=== PATIENT | male | born 1980 | race Caucasian/White ===

== ENCOUNTER 2024-02-25 15:44 | Emergency (ER) | payer OTHER, SELFPAY ==
[2024-02-25 15:53] VITALS: BP 147/82
[2024-02-25 16:12] LABS: % Basophils 0.6 % (0-2); % Immature Granulocytes 0.2 % (0-0.5); % Monocytes 7.6 % (1.7-9.3); % Neutrophils 58.6 % (42.2-75.2); Absolute Eosinophils 0.1 10^3/uL (0-0.7); Absolute Lymphocytes 1.6 10^3/uL (1.2-3.4); Absolute Monocytes 0.4 10^3/uL (0.1-0.6); Hematocrit 41.2 % (39.0-52.0); Hemoglobin 14.3 g/dL (13.0-18.0); Mean Corp Hgb Conc. 34.7 g/dL (33.0-37.0); Mean Corpuscular Hgb 30.6 pg (27.0-31.0); Mean Corpuscular Volume 88.2 fL (80.0-94.0); Mean Platelet Volume 9.2 fL (7.4-10.4); Nucleated Red Blood Cells % 0 % (-); Platelet Count 227 10^3/uL (130-400); Red Blood Cell Count 4.67 10^6/uL (4.70-6.10); Red Cell Dist. Width 12.5 % (11.5-14.5); White Blood Cell Count 5.1 10^3/uL (4.8-10.8)
[2024-02-25 16:27] LABS: ALT (SGPT) 20 U/L (0-50); AST (SGOT) 31 U/L (17-59); Albumin 4.7 g/dl (3.5-5.0); Alkaline Phosphatase 56 U/L (38-126); Blood Urea Nitrogen 15 mg/dl (9-20); Calcium 9.2 mg/dl (8.4-10.2); Carbon Dioxide 26 mmol/L (22-30); Chloride 103 mmol/L (98-107); Glucose 170 mg/dl (70-99); Potassium 4.1 mmol/L (3.5-5.1); Sodium 137 mmol/L (135-145); Total Bilirubin 0.8 mg/dl (0.2-1.3); Total Protein 7.3 g/dl (6.3-8.2); eGFR > 60.00
[2024-02-25 16:37] LABS: Troponin I < 0.012 ng/ml
--- NOTE | 2024-02-25 18:28 | ED.GENMED ---
History of Present Illness
General
Chief Complaint: Chest Pain
Source: patient
Exam Limitations: none
Time Seen by Provider: 02/25/24 17:52
Travel History
Have you had any contact with someone who has COVID-19?: No
Do you have any symptoms of coronavirus? Fever > 100 degrees, chills, cough, shortness of breath, sore throat, loss of taste or smell, muscle aches, or headache?: No
History of Present Illness
History of Present Illness:
This is a 43 year old male that comes in with c/o dizziness and chest pain. States that he came up the stairs and he was feeling dizzy. States that he also felt like someone had there thumb and was pushing on his chest. States that he still feels
slightly dizzy but his chest discomfort is gone. States that it lasted for about 30-40min. States that he felt Slightly SOB. States that lightheadedness was a better description then spinning. Denies any fever, chills, abd pain, nausea, vomiting,
diarrhea, headache, urinary burning.
Past History
Past History
ED Past Surgical History: Urological (Vasectomy) and Other (Hernia, Duodebal-J ostomy, )
Social History
Tobacco: Non-smoker
Alcohol: Occasional
Personal:
Living: with family
Review of Systems
Review of Systems
All Other Systems: ROS reviewed and negative except as documented in HPI and ROS
Constitutional: Reports no symptoms; Denies fever or chills
EENT: Reports no symptoms
Respiratory: Reports trouble breathing (Slight); Denies cough
Cardiac: Reports chest pain
ABD/GI: Reports no symptoms; Denies abdominal pain, nausea, vomiting or diarrhea
: Reports no symptoms; Denies dysuria, frequency or urgency
Musculoskeletal: Reports no symptoms
Skin: Reports no symptoms
Neurological: Reports other (Lightheadedness); Denies headache
Psychiatric: Reports no symptoms
Phy Exam
General Physical Exam
General Presentation: well appearing and no apparent distress
General age: appears stated age
General Skin: warm and dry
General Habitus: normal
General Mental: alert
General Hydration: appears well hydrated
ENT Exam
ENT Exam: TM's normal, pharynx normal and neck supple
Eye Exam
Eye Exam: EOMI
Cardiovascular Exam
Cardiovascular Exam: regular rate/rhythm, no edema, no murmur and normal peripheral pulses
Pulmonary Exam
Pulmonary Exam: lungs clear, no respiratory distress, no rales, chest non tender, no crackles, no rhonchi, no wheezing and no cough
Gastrointestinal Exam
Gastrointestinal Exam: normal bowel sounds, non tender, soft, no organomegaly, no pulsatile mass and non distended
Musculoskeletal Exam
Musculoskeletal Exam: full ROM and no edema
Skin Exam
Skin Exam: normal color, warm/dry, no rash and no petechia
Psychiatric Exam
Psychiatric Exam: normal mood/affect
Scores
Heart Score for Chest Pain Patients
STEMI patient?: No
History: Slightly or Non-Suspicious
ECG: Normal
Age: >45 - <65 years
Risk Factors: No Risk Factors
Troponin: </= Normal Limit
Heart Score for Chest Pain Patients: 1
Heart Score Risk: 2.5% MACE over next 6 weeks
Course
Orders/Labs/Results
Orders:
Orders
02/25/24 15:47
EKG [Electrocardiogram (*1)] Urgent
Reason for Study: Chest Pain
02/25/24 15:48
EKG- Treatment ONCE
02/25/24 16:04
Complete Blood Count/With Diff Urgent
Comprehensive Metabolic Panel Urgent
Troponin I Urgent
02/25/24 17:43
CR Chest - 2 Views Urgent
Comment:
Reason For Exam: chest pain
02/25/24 18:27
EKG- Treatment ONCE
02/25/24 18:28
0.9% Sodium Chloride 1000 ml [Nss] 1,000 ml IV BOLUS
02/25/24 18:40
Troponin I Urgent
02/25/24 19:00
Electrocardiogram (*1) Urgent
Reason for Study: Chest Pain
Other Reason for Exam: Repeat with Troponin
Abnormal Lab Results
02/25/24
16:04
RBC 4.67 L 10^6/uL
(4.70-6.10)
Glucose 170 H mg/dl
(70-99)
02/25/24 16:04
02/25/24 16:04
Glucose nonfasting. Otherwise normal labs. Troponin <0.012,
Second Troponin <0.012
Vital Signs
Initial and Last Documented VS:
Initial Vital Signs
Temp Pulse Resp BP Pulse Ox
97.9 F 54 16 147/82 100
02/25/24 15:53 02/25/24 15:53 02/25/24 15:53 02/25/24 15:53 02/25/24 15:53
Last Documented Vital Signs
Temp Pulse Resp BP Pulse Ox
97.9 F 44 18 138/86 99
02/25/24 15:53 02/25/24 18:31 02/25/24 18:31 02/25/24 18:31 02/25/24 18:31
MDM/Problems Addressed
Differential Diagnosis Includes:
Musculoskeletal pain, Coronary syndrome.
MDM/Problems Addressed:
This is a 43 year old male that comes in with c/o lightheaded an chest discomfort. Stats that he came up the stairs and he was dizzy/lightheaded. States that he also felt like he had a Thumb pushing on his chest. This lasted for about 30-40 min.
States that he has no pain now.
Will check labs and given IV fluids. Will get chest x-ray
Repeat ECG: rate 42, Sinus Bradycardia (patient is a runner), Normal axis. Incomplete RBBB, negative for ischemia. Checked by Dr. Holland.
Back into see patient. Explained that both Troponin are normal. Explained that he has been placed on the Cardiac Hot line and he will be contacted the next business day for further evaluation in the Cardiology office. Patient to return with
increased or changing pain .
Chronic conditions affecting care:
NA
Acute Exacerbation and/or Progression of Chronic Illness:
NA
*Pulse Oximetry
Patient hypoxic: no
*EKG
Interpreted by ED Provider?: Yes
Heart Rate: 80
Rate: normal
Rhythm: sinus
[place]: normal axis
Interval: normal interval
QRS Pattern: normal QRS
Ischemia: no ischemia
*Manager Air Interpretation
Rate: bradycardiac
Heart Rate: 48
Rhythm: sinus
*Critical Care Note
Total Time (30-74mins, 75-104mins- exclusive of procedures): Not Applicable
ED Attending Note
-
Portions of this chart may have been created with voice recognition software.� Occasional wrong word or��sound alike� substitutions may have occurred due to the inherent limitations of voice recognition software.
Discharge Plan
Departure
Patient Disposition: Home (Routine Discharge)
Date of Disposition: 02/25/24
Time of Disposition: 19:57
Patient with high blood pressure during this ER visit?: Yes
Condition: Good
Covid-19: Not Applicable
Discharge Problem:
Chest pain
Instructions: Chest Pain DCA Follow Up, BLOOD PRESSURE
Referrals:
Beatriz Maciel NP [Family Provider] - Follow up in 2-3 days
Activity Restrictions/Additional Instructions:
As discussed, your blood work is normal along with your Chest x-ray. You have been place on the Cardiology hot line for further evaluation. This means that you will be called on the Next Business day and set up for an appointment with the
[facility]. Please rest over the weekend. Please increase your water intake to 8-8oz glasses daily. IF YOU HAVE INCREASED OR CHANGING CHEST PAIN, OR YOU HAVE ANY OTHER CONCERNS PLEASE RETURN TO THE EMERGENCY ROOM.
Interventions
Interventions:
*Risk Screen - Suicide Last Done: 02/25/24 17:42
*General Assessment Last Done: 02/25/24 17:42
*Neglect/Abuse Screening Last Done: 02/25/24 17:42
ED- Fall Risk Assessment Last Done: 02/25/24 17:42
ED- Cardiac Assessment Last Done: 02/25/24 17:42
Discharge Date and Time
Print Language: CAMEROONIAN
[2024-02-25 18:31] VITALS: BP 138/86
[2024-02-25] MEDS: NSS 1000 IV (18:38)
[2024-02-25 19:18] LABS: Troponin I < 0.012 ng/ml
[2024-02-25 20:12] VITALS: BP 133/79
== END 2024-02-25 20:20 | disposition home or self-care (01) ==
LOC: EMR 15:44
PROVIDERS: Clinical Nurse Specialist Family Health; Emergency Medicine; EMERGENCY PHYSICIAN Emergency Medicine; FAMILY PHYSICIAN Internal Medicine
DX: R07.89 Other chest pain (principal); R42 Dizziness and giddiness; R06.02 Shortness of breath; I45.10 Unspecified right bundle-branch block; R03.0 Elevated blood-pressure reading, without diagnosis of hypertension; Z88.1 Allergy status to other antibiotic agents
CPT/HCPCS: 99284; 96360; 71046; 80053; 84484; 85025; 93005

== ENCOUNTER → 2024-03-27 13:49 | Outpatient (REF) | payer OTHER, SELFPAY | LOC: RCS 13:49 | PROVIDERS: ATTENDING PHYSICIAN Nurse Practitioner Adult Health | DX: R07.89 Other chest pain (principal) | CPT/HCPCS: 93017 ==

== ENCOUNTER 2024-09-22 12:33 | Emergency (ER) | payer OTHER, SELFPAY ==
[2024-09-22] VITALS (8 sets, daily range): BP systolic 120–152; BP diastolic 66–98; BMI 25.9
[2024-09-22 13:04] LABS: % Basophils 0.4 % (0-2); % Eosinophils 0.6 % (0-6); % Immature Granulocytes 0.4 % (0-0.5); % Lymphocytes 23.7 % (20.5-51.1); % Monocytes 8.5 % (1.7-9.3); % Neutrophils 66.4 % (42.2-75.2); Absolute Lymphocytes 1.2 10^3/uL (1.2-3.4); Absolute Monocytes 0.4 10^3/uL (0.1-0.6); Absolute Neutrophils 3.4 10^3/uL (1.4-6.5); Hematocrit 43.5 % (39.0-52.0); Hemoglobin 15.1 g/dL (13.0-18.0); Mean Corp Hgb Conc. 34.7 g/dL (33.0-37.0); Mean Corpuscular Hgb 30.9 pg (27.0-31.0); Mean Corpuscular Volume 89.1 fL (80.0-94.0); Mean Platelet Volume 9.3 fL (7.4-10.4); Nucleated Red Blood Cells % 0 % (-); Platelet Count 196 10^3/uL (130-400); Red Blood Cell Count 4.88 10^6/uL (4.70-6.10); Red Cell Dist. Width 12.9 % (11.5-14.5); White Blood Cell Count 5.1 10^3/uL (4.8-10.8)
[2024-09-22 13:16] LABS: ALT (SGPT) 28 U/L (0-50); AST (SGOT) 33 U/L (17-59); Albumin 4.9 g/dl (3.5-5.0); Alkaline Phosphatase 52 U/L (38-126); Blood Urea Nitrogen 13 mg/dl (9-20); Calcium 9.4 mg/dl (8.4-10.2); Carbon Dioxide 28 mmol/L (22-30); Chloride 104 mmol/L (98-107); Glucose 193 mg/dl (70-99); Potassium 4.6 mmol/L (3.5-5.1); Sodium 141 mmol/L (135-145); Total Bilirubin 0.6 mg/dl (0.2-1.3); Total Protein 7.4 g/dl (6.3-8.2); eGFR > 60.00
[2024-09-22 13:22] LABS: Troponin I < 0.012 ng/ml
[2024-09-22] MEDS: NSS 500 IV (17:09)
--- NOTE | 2024-09-22 17:11 | ED.GENMED ---
History of Present Illness
General
Chief Complaint: Numbness
Source: patient
Exam Limitations: none
Time Seen by Provider: 09/22/24 16:19
History of Present Illness
History of Present Illness:
44-year-old male presents with left arm paresthesias and left leg paresthesias. Some heart radiation after the paresthesias started but admitted there may have been an anxiety component. Points to very blotchy areas on the arm and left lateral
leg. No weakness, no speech issues visual issues or other neurologic symptoms.
Past History
Past History
ED Past Surgical History: Urological (Vasectomy) and Other (Hernia, Duodebal-J ostomy, )
Social History
Tobacco: Non-smoker
Alcohol: Occasional
Personal:
Living: with family
Review of Systems
Review of Systems
All Other Systems: Not applicable
Respiratory: Reports no symptoms
Cardiac: Reports no symptoms
Phy Exam
Physical Exam
Physical Exam:
GENERAL: Alert and oriented in no apparent distress
EYE: Orbits normal.
NECK: Supple, no carotid bruit.
ENT: Pharynx without erythema
CARDIAC: Regular rate and rhythm without any obvious murmurs.
LUNGS: Clear breath sounds,normal
ABDOMEN: Soft, without focal tenderness or distention
NEUROLOGICAL: Alert and oriented , cranial nerves II through XII intact. Speech normal. [id number]-cw-[id number] normal. Utlc-lp-[id number] normal. Light touch pinprick graphesthesia all intact
SKIN: Warm and dry, no rash or lesion, no discoloration, skin intact.
MUSCULOSKELETAL: No edema,no deformity.Good color
PSYCH: Normal and appropriate interaction.
Course
Orders/Labs/Results
Orders:
Orders
09/22/24 12:34
ECG [Electrocardiogram (*1)] Urgent
Reason for Study: Palpitations
EKG- Treatment ONCE
09/22/24 12:49
Complete Blood Count/With Diff Urgent
Comprehensive Metabolic Panel Urgent
Troponin I Urgent
09/22/24 16:33
CT Head & Neck Angio W/wo IV Urgent
Comment:
Reason For Exam: Left-sided paresthesias
IV Insert/Care/Rem.- Treatment PRN
0.9% Sodium Chloride 500 ml [Nss] 500 ml IV BOLUS
Abnormal Lab Results
09/22/24
12:49
Glucose 193 H mg/dl
(70-99)
09/22/24 12:49
09/22/24 12:49
Vital Signs
Initial and Last Documented VS:
Initial Vital Signs
Temp Pulse Resp BP Pulse Ox
97.7 F 66 16 152/89 99
09/22/24 12:42 09/22/24 12:42 09/22/24 12:42 09/22/24 12:42 09/22/24 12:42
Last Documented Vital Signs
Temp Pulse Resp BP Pulse Ox
97.7 F 64 14 147/98 100
09/22/24 12:42 09/22/24 19:45 09/22/24 19:45 09/22/24 19:00 09/22/24 19:45
MDM/Problems Addressed
Differential Diagnosis Includes:
Very patchy paresthesia symptoms. Neurologic exam within normal limits. Highly doubt vascular issue. CT angio negative. Stable for discharge. Blood sugar was elevated previously. This does need follow-up
*Radiology
Radiology exam reviewed: radiology read reviewed (Negative CT angio)
*EKG
Interpreted by ED Provider?: Yes
Interpretation: abnormal
Comparison EKG: changes noted
Heart Rate: 69
Rate: normal
Rhythm: sinus
[place]: normal axis
Interval: normal interval
QRS Pattern: right bundle branch block (inc)
Ischemia: no ischemia
*Critical Care Note
Total Time (30-74mins, 75-104mins- exclusive of procedures): Not Applicable
Data Reviewed
Review of Other/Old Records Reveals: Labs
Update Note
Update Note:
Patient's exam is unremarkable. Medically able. No clinical findings to support CVA.
ED Attending Note
-
Portions of this chart may have been created with voice recognition software.� Occasional wrong word or��sound alike� substitutions may have occurred due to the inherent limitations of voice recognition software.
Discharge Plan
Departure
Patient Disposition: Home (Routine Discharge)
Date of Disposition: 09/22/24
Time of Disposition: 20:03
Patient with high blood pressure during this ER visit?: Yes
Discharge Problem:
Paresthesias, Hyperglycemia
Instructions: Paresthesia (DC), High Blood Sugar, Adult ED, BLOOD PRESSURE
Referrals:
Beatriz Maciel [facility] TWISTER [Family Provider] - Follow up in 2-3 days
Activity Restrictions/Additional Instructions:
As we discussed, reasonable to take a baby aspirin per day
Follow-up closely with your primary physician
Interventions
Interventions:
*Risk Screen - Suicide Last Done: 09/22/24 12:40
*General Assessment Last Done: 09/22/24 16:12
*Neglect/Abuse Screening Last Done: 09/22/24 12:40
*ED COVID-19 Vaccine History Last Done: 09/22/24 16:12
ED- Neurological Assessment Last Done: 09/22/24 16:12
Discharge Date and Time
Print Language: WOLOF
== END 2024-09-22 20:20 | disposition home or self-care (01) ==
LOC: EMR 12:33
PROVIDERS: Emergency Medicine; EMERGENCY PHYSICIAN Emergency Medicine; FAMILY PHYSICIAN Internal Medicine
DX: R20.2 Paresthesia of skin (principal); R73.9 Hyperglycemia, unspecified
CPT/HCPCS: 99285; 96360; 96361; 70496; 70498; 80053; 84484; 85025; 93005; Q9967

== ENCOUNTER → 2024-11-06 15:32 | Outpatient (REF) | payer OTHER, SELFPAY | LOC: HWRCS 15:32 | PROVIDERS: ATTENDING PHYSICIAN Nurse Practitioner Adult Health | DX: R07.9 Chest pain, unspecified (principal) | CPT/HCPCS: 93306 ==

== ENCOUNTER → 2024-11-12 08:45 | Outpatient (REF) | payer OTHER, SELFPAY | LOC: PAVMRI 08:45 | PROVIDERS: ATTENDING PHYSICIAN Nurse Practitioner Adult Health; FAMILY PHYSICIAN Internal Medicine | DX: R20.0 Anesthesia of skin (principal); R20.2 Paresthesia of skin | CPT/HCPCS: 70551 ==

== ENCOUNTER 2025-09-12 13:04 | Emergency (ER) | payer OTHER, SELFPAY ==
[2025-09-12 13:07] VITALS: BP 171/103
[2025-09-12 13:24] LABS: Hematocrit 43.4 % (39.0-52.0); Hemoglobin 14.7 g/dL (13.0-18.0); Mean Corp Hgb Conc. 33.9 g/dL (33.0-37.0); Mean Corpuscular Volume 89.1 fL (80.0-94.0); Nucleated Red Blood Cells % 0 % (-); Platelet Count 204 10^3/uL (130-400); Red Cell Dist. Width 12.6 % (11.5-14.5)
[2025-09-12 13:38] LABS: ALT (SGPT) 23 U/L (0-50); AST (SGOT) 32 U/L (17-59); Albumin 5.0 g/dl (3.5-5.0); Alkaline Phosphatase 51 U/L (38-126); Blood Urea Nitrogen 13 mg/dl (9-20); Calcium 9.2 mg/dl (8.4-10.2); Carbon Dioxide 29 mmol/L (22-30); Chloride 103 mmol/L (98-107); Glucose 111 mg/dl (70-99); Potassium 4.7 mmol/L (3.5-5.1); Sodium 137 mmol/L (135-145); Total Protein 7.8 g/dl (6.3-8.2); eGFR > 60.00
--- NOTE | 2025-09-12 14:48 | ED.GENMED ---
History of Present Illness
General
Chief Complaint: Blood Pressure Problem
Source: patient
Exam Limitations: none
Time Seen by Provider: 09/12/25 14:33
History of Present Illness
History of Present Illness:
45yoM with no significant past medical history presenting for evaluation of palpitations. Symptoms have been ongoing for a while but started to worsen last night. He describes feeling like his heart is working too hard. His heart rate was
elevated yesterday on his Apple Watch and he feels like his blood pressure is elevated. He has some chest discomfort from time to time. He also reports tingling in his left cheek and left hand that has been constant since last night. No headache
or shortness of breath. He was seen in the ED about a year ago for similar paresthesias. He had a CTA head/neck that was normal. He had a follow-up brain MRI in October 2024 which was also normal. Echocardiogram in October 2024 showed an EF of
55 to 60%. He is not currently on any medications.
Past History
Past History
ED Past Surgical History: Urological (Vasectomy) and Other (Hernia, Duodebal-J ostomy, )
Social History
Tobacco: Non-smoker
Alcohol: Occasional
Personal:
Living: with family
Phy Exam
General Physical Exam
General Presentation: well appearing and no apparent distress
General age: appears stated age
General Skin: warm and dry
General Habitus: normal
General Mental: alert
ENT Exam
ENT Exam: normocephalic
Cardiovascular Exam
Cardiovascular Exam: regular rate/rhythm, no edema, no murmur and normal peripheral pulses (2+ radial and PT pulses bilaterally)
Pulmonary Exam
Pulmonary Exam: lungs clear, no respiratory distress, no rales, no crackles, no rhonchi and no wheezing
Neurological Exam
Neurological Exam: alert
[place] Coma Scale
Eye Opening: Spontaneous
Verbal Response: Oriented
Motor Response: Obeys Commands
GCS Total Score: 15
Skin Exam
Skin Exam: normal color and warm/dry
Psychiatric Exam
Psychiatric Exam: normal mood/affect
Scores
NIH Stroke Score
Level of Consciousness: 0 - Alert
LOC Questions: 0-Answers both correctly
LOC Commands: 0-Performs both correctly
Best Horizontal Gaze: 0-Normal
Visual [place]: 0=Normal, no visual loss
Facial Palsy: 0=Normal, symmetrical
Motor - Right Arm: 0=No drift 10 seconds
Motor - Left Arm: 0=No drift 10 seconds
Motor - Right Le-No drift 5 seconds
Motor - Left Le-No drift 5 seconds
Limb Ataxia: 0-Absent
Sensation: 0-Normal
Best Language: 0-No aphasia
Dysarthria: 0-Normal
Extinction and Inattention: 0-No abnormality
NIH Total Score:: 0
Course
Orders/Labs/Results
Orders:
Orders
09/12/25 13:10
EKG [Electrocardiogram (*1)] Urgent
Reason for Study: Vertigo / Dizzy
EKG- Treatment ONCE
09/12/25 13:12
CBC/With Diff [Complete Blood Count/With Diff] Urgent
CMP [Comprehensive Metabolic Panel] Urgent
TSH Urgent
Comment: ADD ON
09/12/25 14:33
Add On- LAB Urgent
Tests Added?: TSH
09/12/25 15:02
Cardiac Monitoring- Treatment ONCE
09/12/25 15:19
Troponin I Urgent
Abnormal Lab Results
09/12/25
13:12
Monocytes % 10.3 H %
(1.7-9.3)
Glucose 111 H mg/dl
(70-99)
09/12/25 13:12
09/12/25 13:12
Vital Signs
Initial and Last Documented VS:
Initial Vital Signs
Temp Pulse Resp BP Pulse Ox
97.6 F 68 15 171/103 98
09/12/25 13:07 09/12/25 13:07 09/12/25 13:07 09/12/25 13:07 09/12/25 13:07
Last Documented Vital Signs
Temp Pulse Resp BP Pulse Ox
97.6 F 48 14 121/83 100
09/12/25 13:07 09/12/25 16:30 09/12/25 16:30 09/12/25 16:00 09/12/25 16:30
MDM/Problems Addressed
Differential Diagnosis Includes:
45yoM here with palpitations, elevated BP, and L sided tingling. BP 171/103 in triage. BP improved to 147/89 on initial exam. He is well appearing in no distress. Exam reassuring. Equal pulses in all extremities. NIHSS 0 and there are no focal
deficits. No objective sensory deficit appreciated. Differential diagnosis includes but is not limited to: ACS, electrolyte abnormality, thyroid dysfunction, anxiety, no clinical evidence of CVA
Initial ED plan: Workup initiated in triage. EKG shows sinus bradycardia without ischemic changes. Basic lab work unremarkable including normal electrolytes. Will add on TSH and troponin. Will defer head CT as there is no clinical evidence of
CVA. He had a similar presentation <1 year ago and CTA head and MRI brain were negative.
*Pulse Oximetry
SaO2: 98
Oxygen Mode of Delivery: Room air
Patient hypoxic: no
*EKG
Interpreted by ED Provider?: Yes
EKG Intrepretation Date: 09/12/25
Heart Rate: 54
Rate: bradycardiac
Rhythm: sinus
[place]: normal axis
Interval: normal interval
QRS Pattern: normal QRS
Ischemia: no ischemia
*Critical Care Note
Total Time (30-74mins, 75-104mins- exclusive of procedures): Not Applicable
Update Note
Update Note:
TSH normal. Troponin undetectable. Blood pressure improved to 121/83 without intervention. No indication for hospitalization. He has an appointment scheduled with his PCP in 5 days so he will have close outpatient follow-up. ED return
precautions reviewed and patient was discharged in stable condition.
ED Attending Note
-
Portions of this chart may have been created with voice recognition software.� Occasional wrong word or��sound alike� substitutions may have occurred due to the inherent limitations of voice recognition software.
Discharge Plan
Departure
Patient Disposition: Home (Routine Discharge)
Date of Disposition: 09/12/25
Time of Disposition: 16:39
Patient with high blood pressure during this ER visit?: No
Discharge Problem:
Palpitations, Paresthesia
Instructions: Palpitations - ED (DC)
Referrals:
Beatriz Maciel C[employer] OFFICER [Family Provider, Internal Medicine]
Activity Restrictions/Additional Instructions:
Please follow-up with your family doctor next week as previously scheduled. Return to the ER with any new or worsening symptoms.
Interventions
Interventions:
*Risk Screen - Suicide Last Done: 09/12/25 13:07
*General Assessment Last Done: 09/12/25 13:07
*Neglect/Abuse Screening Last Done: 09/12/25 13:07
*ED COVID-19 Vaccine History Last Done: 09/12/25 13:07
*ED Influenza Vaccine History Last Done: 09/12/25 13:07
*Nursing Disposition Last Done: 09/12/25 16:52
ED- Cardiac Assessment Last Done: 09/12/25 14:57
ED- Neurological Assessment Last Done: 09/12/25 14:57
ED- Pulmonary Assessment Last Done: 09/12/25 14:57
Discharge Date and Time
Discharge Date/Time: 09/12/25 16:52
Print Language: SURINAMESE
[2025-09-12 14:50] VITALS: BP 155/94
[2025-09-12 15:00] VITALS: BP 147/89
[2025-09-12 15:31] LABS: TSH 1.27 uIU/ml (0.47-4.68)
[2025-09-12 16:00] VITALS: BP 121/83
[2025-09-12 16:05] LABS: Troponin I < 0.012 ng/ml
== END 2025-09-12 16:52 | disposition home or self-care (01) ==
LOC: EMR 13:04
PROVIDERS: Emergency Medicine; Physician Assistant; EMERGENCY PHYSICIAN Emergency Medicine; FAMILY PHYSICIAN Internal Medicine
DX: R00.2 Palpitations (principal); R20.2 Paresthesia of skin; R00.1 Bradycardia, unspecified
CPT/HCPCS: 99284; 80053; 84443; 84484; 85025; 93005